=== PATIENT | female | born 1975 | race Asian ===

== ENCOUNTER 2024-05-30 00:09 | Emergency (ER) | payer MEDICAID ==
[~2024-05-30] VITALS: Ht 160 cm; Wt 65.8 kg
[2024-05-30 00:27] VITALS: BP_SYST 159; PULSE 105; RESP 16; TEMP 98.9; O2SAT 96
[2024-05-30] MEDS: cloNIDine HCL 0.1 MG TABLET PO ONE (01:04)
[2024-05-30] MEDS ORDERED: AMLO5TAB4 PO (01:55)
[2024-05-30] MEDS ORDERED: ACET-73 PO (01:55)
[2024-05-30 02:11] VITALS: BP_SYST 145; PULSE 82; RESP 18; O2SAT 99
== END 2024-05-30 02:05 | disposition home or self-care (01) ==
LOC: SED 00:09
DX: S40.022A Contusion of left upper arm, initial encounter (principal); I10 Essential (primary) hypertension; W22.8XXA Striking against or struck by other objects, initial encounter; Y93.89 Activity, other specified; Y92.89 Other specified places as the place of occurrence of the external cause; Y99.8 Other external cause status
CPT/HCPCS: 73060; 99283